=== PATIENT | female | born 1935 | race Caucasian/White ===

== ENCOUNTER 2016-12-24 09:35 | Emergency (ER) | payer MEDICARE, BC ==
[2016-12-24 09:54] VITALS: BP 108/54
--- NOTE | 2016-12-24 11:15 | UC ---
Complaint Female HPI - HPI Summary HPI Summary: Patient presents with her daughter with CC of increased confusion. Daughter states she will have UTI's often when she is confused. Denies urinary symptoms. She lives at [facility] and has dementia at baseline. She was unable to give a urine sample at the clinic. It was explained the patient could go home and return with a sample. Will give information on UTI's prematurely and await the urine and results and treat appropriately at that time. - History Of Current Complaint Chief Complaint: UCGU Stated Complaint: URINARY COMPLAINT Time Seen by Provider: 12/24/16 10:24 Hx Obtained From: Patient Hx Last Menstrual Period: n/a ?: No Onset/Duration: Gradual Onset Timing: Constant Severity Initially: Moderate Severity Currently: Moderate Pain Intensity: 0 Pain Scale Used: 0-10 Numeric Associated Signs And Symptoms: Positive: Negative - Risk Factors Ectopic Risk Factor: Negative Ovarian Torsion Risk Factor: Negative - Allergies/Home Medications Allergies/Adverse Reactions: Allergies Allergy/AdvReac Type Severity Reaction Status Date / Time Rofecoxib [From Vioxx] Allergy Unknown Verified 10/31/15 09:09 Reaction Details PMH/Surg Hx/FS Hx/Imm Hx Previously Healthy: Yes Neurological History: Dementia - Surgical History Surgical History: Yes Surgery Procedure, Year, and Place: gallbladder, tubal ligation - Family History Known Family History: Positive: None - Social History Occupation: Retired Lives: Assisted Living Alcohol Use: None Substance Use Type: None Smoking Status (MU): Former Smoker - Immunization History Most Recent Influenza Vaccination: 2312-4212 Review of Systems Constitutional: Negative Respiratory: Negative Cardiovascular: Negative Genitourinary: Negative Motor: Negative Musculoskeletal: Negative Neurological: Other - confused Psychological: Negative All Other Systems Reviewed And Are Negative: Yes Physical Exam Triage Information Reviewed: Yes Appearance: Well-Appearing, No Pain Distress, Well-Nourished Vital Signs: Initial Vital Signs Temp 98.4 F 12/24/16 09:44 Pulse 81 12/24/16 09:44 Resp 16 12/24/16 09:44 BP 108/54 12/24/16 09:44 Pulse Ox 97 12/24/16 09:44 Vital Signs Reviewed: Yes Eye Exam: Normal Eyes: Positive: Conjunctiva Clear Neck exam: Normal Neck: Positive: Supple, No Lymphadenopathy Respiratory: Positive: Chest non-tender, Lungs clear Cardiovascular Exam: Normal Cardiovascular: Positive: RRR Musculoskeletal Exam: Normal Musculoskeletal: Positive: Strength Intact Neurological Exam: Normal Neurological: Positive: Alert Psychological: Positive: Normal Response To Family, Age Appropriate Behavior Skin Exam: Normal Complaint Female Dx - Course Course Of Treatment: Patient presents with her daughter with CC of increased confusion. Daughter states she will have UTI's often when she is confused. Denies urinary symptoms. She lives at [facility] and has dementia at baseline. She was unable to give a urine sample at the clinic. It was explained the patient could go home and return with a sample. Will give information on UTI's prematurely and await the urine and results and treat appropriately at that time. Patient and daughter OK with plan. - Differential Dx/Diagnosis Differential Diagnosis/HQI/PQRI: Pelvic Inflammatory Disease, Renal Colic, Ureteral Stone, Urinary Tract Infection Provider Diagnoses: UTI, confusion Discharge - Discharge Plan Condition: Stable Disposition: HOME Patient Education Materials: Urinary Traction Infection in Older Adults (ED) Referrals: Oneyda Louise MD [Primary Care Provider] - Additional Instructions: Dx. Urinary Tract Infection Drink plenty of fluids. Supplement with cranberry or rebollar juice. You may also take an over the counter cranberry supplement. If you have any questions about this, you may ask your pharmacist. If your symptoms have not improved in 1-2 days, if you develop fever, sweats or chills, please go to your emergency room, or call your PCP. Antibiotics were prescribed to you. Please take as directed. Supplement with over the counter probiotics on the opposite schedule of your antibiotic to prevent secondary infections. Do not take together as they may counteract each other.
== END 2016-12-24 11:17 | disposition home or self-care (01) ==
LOC: UCCORT 09:35
DX: N39.0 Urinary tract infection, site not specified (principal); F44.89 Other dissociative and conversion disorders
CPT/HCPCS: 81003; 87086; 99211; G0463